=== PATIENT | male | born 1965 | race Hispanic/Latino ===

== ENCOUNTER 2017-10-02 07:35 | Emergency (ER) | payer MEDICAID ==
[2017-10-02 07:56] VITALS: BP 144/87; PULSE 84; RESP 16; TEMP 97.9; O2SAT 98
--- NOTE | 2017-10-02 08:26 | C.PDOC ---
History Of Present Illness 51-year-old male presents to the ED for evaluation of left toe injury sustained 2 days ago. Patient states that a radiator fell on his left great toe 2 days ago. He was seen at a [facility] yesterday and had an X-ray done, which was negative for fracture. However he states the toe contunues to be painful and the nail has become very dark in color. Patient denies new injuries or sensory changes. Time Seen by Provider: 10/02/17 07:46 Chief Complaint (Nursing): Lower Extremity Problem/Injury History Per: Patient History/Exam Limitations: no limitations Onset/Duration Of Symptoms: Days (x3) Current Symptoms Are (Timing): Still Present Past Medical History Reviewed: Historical Data, Nursing Documentation, Vital Signs Vital Signs: Last Vital Signs Temp 97.9 F 10/02/17 07:55 Pulse 84 10/02/17 07:55 Resp 16 10/02/17 07:55 BP 144/87 10/02/17 07:55 Pulse Ox 98 10/02/17 10:11 - Medical History PMH: Diabetes (borderline) Other Surgeries: Orthopedic surgery Family History: States: No Known Family Hx - Social History Hx Alcohol Use: Yes Hx Substance Use: Yes (09/2017 last use 1 month ago) - Immunization History Hx Tetanus Toxoid Vaccination: No Hx Influenza Vaccination: No Hx Pneumococcal Vaccination: No Review Of Systems Constitutional: Negative for: Fever, Chills Musculoskeletal: Positive for: Other (left great toe pain, + discoloration of nail) Skin: Negative for: Rash Neurological: Negative for: Weakness, Numbness Physical Exam - Physical Exam Appears: Well, Non-toxic, No Acute Distress Skin: Warm, Dry Eye(s): bilateral: Normal Inspection Oral Mucosa: Moist Neck: Supple Cardiovascular: Rhythm Regular Respiratory: Normal Breath Sounds, No Accessory Muscle Use, No Rales, No Rhonchi , No Wheezing Extremity: Normal ROM, Tenderness (left great toe), No Calf Tenderness, Capillary Refill (< 2 sec all digits ), No Deformity, Other (Left great toe with 100% subungual hematoma, + TTP, with mild surrounding erythema) Pulses: Left Dorsalis Pedis: Normal, Right Dorsalis Pedis: Normal Neurological/Psych: Oriented x3, Normal Sensation Gait: Steady ED Course And Treatment O2 Sat by Pulse Oximetry: 98 (RA) Pulse Ox Interpretation: Normal Progress Note: Electrocautery used to decompress the subungual hematoma/nail trephination (by me). Patient tolerated well, approx 5-10ml of blood expressed. Patient felt immediate relief of pain after procedure. He was instructed to follow up with PMD/clinic in 1-2 days, and understands he should return to ED if symptoms worsen. Disposition Counseled Patient/Family Regarding: Diagnosis, Need For Followup - Disposition Referrals: [facility] at [facility] [Outside] Disposition: HOME/ ROUTINE Disposition Time: 08:30 Condition: STABLE Additional Instructions: FOLLOW UP WITH YOUR DOCTOR/CLINIC IN 1-2 DAYS USE IBUPROFEN OR TYLENOL NEEDED FOR PAIN KEEP AREA CLEAN RETURN TO ER IF SYMPTOMS WORSEN Forms: General Discharge Instructions, [facility] (Luxembourgish), Work Excuse Print Language: PERUVIAN - POA Present On Arrival: Falls Or Trauma - Clinical Impression Clinical Impression: Subungual hematoma - Scribe Statement The provider has reviewed the documentation as recorded by the Scribe (Angélica Moran) Provider Attestation: All medical record entries made by the Scribe were at my direction and personally dictated by me. I have reviewed the chart and agree that the record accurately reflects my personal performance of the history, physical exam, medical decision making, and the department course for this patient. I have also personally directed, reviewed, and agree with the discharge instructions and disposition.
== END 2017-10-02 09:07 | disposition home or self-care (01) ==
LOC: C.ER 07:35
DX: S90.112D Contusion of left great toe without damage to nail, subsequent encounter (principal); W22.8XXD Striking against or struck by other objects, subsequent encounter; R73.03 Prediabetes

== ENCOUNTER 2017-10-22 10:01 | Emergency (ER) | payer MEDICAID, OTHER ==
[2017-10-22 10:23] VITALS: BP 129/82; PULSE 88; RESP 18; TEMP 98.4; O2SAT 97
[2017-10-22] MEDS ORDERED: Tmp-Smz 800 mg-160 mg DS Tab PO STA (10:36)
--- NOTE | 2017-10-22 10:38 | C.PDOC ---
History Of Present Illness 51 y/o male presents to ED for evaluation of redness and pain to left big toe gradually developed for 1 month. Patient was seen at ED "few days ago, my toe was broken 3 weeks ago and few days ago they drained my nail". Patient states, developed redness and pain developed left big toe nail bed after the procedure. Otherwise, pt denies recent knew trauma or injury, fever, chills, denies wound draining, weakness, sensory or vascular deficit to foot. Ambulate to Ed for evaluation, not in any apparent distress. Time Seen by Provider: 10/22/17 10:14 Chief Complaint (Nursing): Lower Extremity Problem/Injury History Per: Patient History/Exam Limitations: no limitations Onset/Duration Of Symptoms: Days Current Symptoms Are (Timing): Still Present Past Medical History Reviewed: Historical Data, Nursing Documentation, Vital Signs Vital Signs: Last Vital Signs Temp 98.4 F 10/22/17 10:11 Pulse 88 10/22/17 10:11 Resp 18 10/22/17 10:11 BP 129/82 10/22/17 10:11 Pulse Ox 97 10/22/17 10:47 - Medical History PMH: Diabetes (borderline) Surgical History: No Surg Hx Family History: States: No Known Family Hx - Social History Hx Alcohol Use: Yes Hx Substance Use: Yes (09/2017 last use 1 month ago) - Immunization History Hx Tetanus Toxoid Vaccination: No Hx Influenza Vaccination: No Hx Pneumococcal Vaccination: No Review Of Systems Constitutional: Negative for: Fever, Chills Musculoskeletal: Positive for: Foot Pain (toe). Negative for: Leg Pain Skin: Negative for: Rash, Bruising Neurological: Negative for: Numbness Physical Exam - Physical Exam Appears: Well, Non-toxic, No Acute Distress Skin: Normal Color, Warm, Dry, No Rash Extremity: Normal ROM, No Calf Tenderness, Capillary Refill (<2 seconds), No Deformity, No Swelling, Other (left toe nailbed diffuse erythema and tenderness. No fluctuance. No proximal streaking) Pulses: Left Dorsalis Pedis: Normal Neurological/Psych: Oriented x3, Normal Motor, Normal Sensation ED Course And Treatment O2 Sat by Pulse Oximetry: 97 (RA) Pulse Ox Interpretation: Normal Progress Note: On re-evaluation, pt is afebrile, hemodynamicaly stable. Ambulatory in Ed with stable gait. Left foot: exam c/w mild subungual ecchymoses with diffuse erythema around nail bed. No edema, no deformity, no proximal streaking, no open wound or discahrges. FAROM, no neurovascular deficist. Pt advised. ref. to f/u with Podiatry in 2 days for re-eval. return if any worseningor new changes. Disposition Counseled Patient/Family Regarding: Diagnosis, Need For Followup, Rx Given - Disposition Referrals: [facility] at [facility] [Outside] Disposition: HOME/ ROUTINE Disposition Time: 10:38 Condition: STABLE Additional Instructions: Take medictaion as prescribed light duty to Left foot, avoid prolong walking, standing for 1-2 weeks Follow up with Podiatry Clinic on Friday from noon 12 PM- 3PM for further evaluation and treatment. 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 - Scribe Statement The provider has reviewed the documentation as recorded by the Nick Ortez All medical record entries made by the Nick were at my direction and personally dictated by me. I have reviewed the chart and agree that the record accurately reflects my personal performance of the history, physical exam, medical decision making, and the department course for this patient. I have also personally directed, reviewed, and agree with the discharge instructions and disposition.
[2017-10-22] MEDS ORDERED: Tmp-Smz 800 mg-160 mg DS Tab ONE (10:46)
== END 2017-10-22 11:00 | disposition home or self-care (01) ==
LOC: C.ER 10:01
DX: S90.212A Contusion of left great toe with damage to nail, initial encounter (principal); X58.XXXA Exposure to other specified factors, initial encounter; L03.032 Cellulitis of left toe

== ENCOUNTER 2017-11-16 14:08 | Emergency (ER) | payer SELFPAY | END 2017-11-16 14:16 | disposition left against medical advice (07) | LOC: C.ER 14:08 | DX: Z02.89 Encounter for other administrative examinations (principal); F19.10 Other psychoactive substance abuse, uncomplicated ==

== ENCOUNTER 2017-11-17 00:34 | Inpatient (IN) | payer SELFPAY ==
[2017-11-17 01:55] LABS: BASO # 0.1 K/uL (0.0-0.2); BASO % 0.7 % (0.0-2.0); EOS # 0.2 K/uL (0.0-0.7); EOS % 2.1 % (0.0-4.0); HEMOGLOBIN 16.2 g/dL (12.0-18.0); LYMPH # 2.8 K/uL (1.0-4.3); LYMPH % 37.1 % (20.0-40.0); MEAN CELL VOLUME 87.4 fL (80.0-94.0); MEAN CORPUSCULAR HEMOGLOBIN 30.2 pg (27.0-31.0); MEAN CORPUSCULAR HGB CONC 34.6 g/dL (33.0-37.0); MEAN PLATELET VOLUME 7.6 fL (7.2-11.7); MONO # 0.6 K/uL (0.0-0.8); MONO % 8.1 % (0.0-10.0); NEUT # 3.9 K/uL (1.8-7.0); NRBC % 0.1 % (0.0-2.0); RBC 5.37 Mil/uL (4.40-5.90); RED CELL DISTRIBUTION WIDTH 13.5 % (11.5-14.5); WHITE BLOOD COUNT 7.5 K/uL (4.8-10.8)
--- NOTE | 2017-11-17 01:56 | C.PDOC ---
History Of Present Illness 51 year old male presents to the ED requesting detox for alcohol and crack cocaine. Patient states his last use was today [employer]. Patient denies other drug abuse, CP, SOB, hallucinations. Time Seen by Provider: 11/17/17 00:48 Chief Complaint (Nursing): Psychiatric Evaluation History Per: Patient History/Exam Limitations: intoxication Onset/Duration Of Symptoms: Hrs Current Symptoms Are (Timing): Still Present Suicide/Self Injury Attempted (Context): None Modifying Factor(s): Alcohol, Cocaine, Crack Associated Symptoms: denies: Depression, Suicidal Thoughts, Suicidal Plan Involuntary Hold By: None Recent travel outside of the [place]: No Additional History Per: Patient Past Medical History Reviewed: Historical Data, Nursing Documentation, Vital Signs Vital Signs: Last Vital Signs Temp 98.3 F 11/17/17 00:43 Pulse 116 H 11/17/17 00:43 Resp 20 11/17/17 00:43 BP 131/87 11/17/17 00:43 Pulse Ox 96 11/17/17 00:43 - Medical History PMH: Diabetes (borderline) Surgical History: No Surg Hx Family History: States: Unknown Family Hx - Social History Hx Alcohol Use: Yes Hx Substance Use: Yes - Immunization History Hx Tetanus Toxoid Vaccination: No Hx Influenza Vaccination: No Hx Pneumococcal Vaccination: No Review Of Systems Constitutional: Negative for: Fever, Chills Cardiovascular: Negative for: Chest Pain, Palpitations Respiratory: Negative for: Cough, Shortness of Breath Gastrointestinal: Negative for: Nausea, Vomiting, Abdominal Pain Skin: Negative for: Rash Psych: Negative for: Depression, Suicidal ideation Physical Exam - Physical Exam Appears: Non-toxic, No Acute Distress ED Course And Treatment O2 Sat by Pulse Oximetry: 96 Disposition - Disposition
[2017-11-17 01:58] LABS: SQUAMOUS EPITHIAL < 1 /hpf (0-5); URINE BILIRUBIN NEGATIVE (NEGATIVE); URINE BLOOD NEGATIVE (NEGATIVE); URINE CLARITY Hazy (Clear); URINE COLOR Yellow (YELLOW); URINE GLUCOSE (UA) 2+ mg/dL (Normal); URINE HYALINE CAST 0-2 /lpf (0-2); URINE LEUKOCYTE ESTERASE NEG Leu/uL (Negative); URINE PROTEIN 1+ mg/dL (NEGATIVE)
--- NOTE | 2017-11-17 01:59 | C.PDOC ---
History Of Present Illness 51 year old male presents to the ED requesting alcohol and crack cocaine abuse. Patient reports his last use was prior to arrival, patient reports having suicidal ideation and homicidal ideation with no specific plan. Patient denies CP, SOB, hallucinations, other substance abuse. Time Seen by Provider: 11/17/17 00:48 Chief Complaint (Nursing): Psychiatric Evaluation History Per: Patient History/Exam Limitations: intoxication Onset/Duration Of Symptoms: Hrs Current Symptoms Are (Timing): Still Present Suicide/Self Injury Attempted (Context): None Modifying Factor(s): Alcohol, Cocaine, Crack Associated Symptoms: Depression, Suicidal Thoughts. denies: Suicidal Plan Recent travel outside of the [place]: No Additional History Per: Patient Past Medical History Reviewed: Historical Data, Nursing Documentation, Vital Signs Vital Signs: Last Vital Signs Temp 98.3 F 11/17/17 06:00 Pulse 96 H 11/17/17 06:00 Resp 20 11/17/17 06:00 BP 125/76 11/17/17 06:00 Pulse Ox 95 11/17/17 06:00 - Medical History PMH: Diabetes (borderline) Surgical History: No Surg Hx Family History: States: Unknown Family Hx - Social History Hx Alcohol Use: Yes Hx Substance Use: Yes - Immunization History Hx Tetanus Toxoid Vaccination: No Hx Influenza Vaccination: No Hx Pneumococcal Vaccination: No Review Of Systems Constitutional: Negative for: Fever, Chills Cardiovascular: Negative for: Chest Pain Respiratory: Negative for: Cough, Shortness of Breath Gastrointestinal: Negative for: Nausea, Vomiting, Abdominal Pain Skin: Negative for: Rash Psych: Positive for: Depression, Suicidal ideation Physical Exam - Physical Exam Appears: Non-toxic, No Acute Distress Skin: Normal Color, Warm, Dry Head: Atraumatic, Normacephalic Eye(s): bilateral: Normal Inspection Neck: Normal ROM, Supple Chest: Symmetrical Cardiovascular: Rhythm Regular Respiratory: Normal Breath Sounds, No Rales, No Rhonchi, No Wheezing Gastrointestinal/Abdominal: Soft, No Tenderness, No Guarding, No Rebound Extremity: Normal ROM, No Tenderness, No Swelling Neurological/Psych: Oriented x3, Normal Speech, Normal Cognition Gait: Steady ED Course And Treatment - Laboratory Results Result Diagrams: 11/17/17 01:50 11/17/17 01:50 O2 Sat by Pulse Oximetry: 96 (ON RA) Pulse Ox Interpretation: Normal Medical Decision Making Medical Decision Making: Plan: * Labs * UA * Crisis evaluation Disposition - Disposition Disposition: HOSPITALIZED Disposition Time: 02:00 Condition: STABLE - POA Present On Arrival: None - Clinical Impression Clinical Impression: Depressive disorder, Drug abuse and dependence - PA / RIVER GUIDE / Resident Statement MD/DO has reviewed & agrees with the documentation as recorded. - Scribe Statement The provider has reviewed the documentation as recorded by the Scribe Cruz Barrientos All medical record entries made by the Scribe were at my direction and personally dictated by me. I have reviewed the chart and agree that the record accurately reflects my personal performance of the history, physical exam, medical decision making, and the department course for this patient. I have also personally directed, reviewed, and agree with the discharge instructions and disposition.
[2017-11-17 02:05] LABS: ALB/GLOB RATIO 1.4 (1.0-2.1); ALBUMIN 5.1 g/dL (3.5-5.0); ALT/SGPT 60 U/L (21-72); AST/SGOT 44 U/L (17-59); BLOOD UREA NITROGEN 18 mg/dL (9-20); CALCIUM 9.3 mg/dl (8.6-10.4); GFR AFRICAN-AMERICAN > 60; GFR NON-AFRICAN AMERICAN > 60
[2017-11-17 02:09] LABS: BARBITURATES, UR NEGATIVE (NEGATIVE); BENZODIAZEPINES, UR NEGATIVE (NEGATIVE); OPIATES, UR NEGATIVE (NEGATIVE); PHENCYCLIDINE, UR NEGATIVE (NEGATIVE)
--- NOTE | 2017-11-17 03:32 | PCM.BM ---
<Queenie Flor - Last Filed: 11/17/17 03:31> Treatment Plan Problems - Problems identified on initial assessmt Suicidal ideations Date Initiated: 11/17/17 Time Initiated: 03:25 Assessment reference: NA Status: Active Treatment assets and liabiliti Patient Assests: cooperative, ADL independent, negotiates basic needs Patient Liabilities: live alone, substance abuse - Milieu Protocol Maintain good personal hygiene: daily Encourage regular showers, daily Remind patient to perform daily oral care, daily Assist patient to perform ADL's Maintain personal safety: every shift Educate patient to report safety concerns to staff, every shift Monitor environment for contraband/sharps Medication safety: Monitor for expected outcome, potential side effects: every shift, Assess barriers to learning: every shift, Assess readiness for medication education: every shift <Jessica Mckeon - Last Filed: 11/17/17 16:47> Family Contact Family involvement: Patient does not wish Family/SO involvement Family contact: Patient declines to allow family contact at present - Goals for Treatment Patient goals for treatment: "I want to go back to [facility], ." Discharge/Continuing Care - Education Needs Education Needs: Patient Medication, Patient Diagnosis/Disease Process, Patient Coping Skills, Patient Placement options, Patient Community resources - Discharge Discharge Criteria: Free of Suicidal thoughts, Normal sleep pattern, Ability to care for self, No longer exhibiting s/s of withdrawal, Reduction of target symptoms Discharge to:: Substance Abuse Rehab - Treatment Team Participation Discussed with Family/SO: No Was Patient/Family/SO present at Treatment Team Meeting: Yes <Iva Carroll - Last Filed: 11/17/17 23:59> - Diagnosis (1) Alcohol use disorder, severe, dependence Status: Acute Interventions: 11/17/17 23:59 * Assess 7x/week regarding severity of withdrawal * Educate regarding risks, benefits, side effects and alternatives of medications * Use Motivational Interviewing for abstinence * Use CBT for relapse prevention * Medication management for withdrawal symptoms * Encourage medication assisted treatment * (2) Depressive disorder Status: Acute Interventions: 11/17/17 23:59 * Assess/adjust medications daily and /or as needed * See patient on an individual basis 7x/week to assess symptoms of depression * Monitor for side effects & effectiveness of medications *
[2017-11-17 04:07] VITALS: RESP 20
--- NOTE | 2017-11-17 11:39 | PCM.PSYCH ---
Initial Psychiatric Evaluation - Initial Psychiatric Evaluation Type of Admission: Voluntary Legal Status: Capacity Chief Complaint (in patient's own words): "I drank all day yesterday and I felt depressed with suicidal thoughts" History of Present Illness and Precipitating Events: HPI: Patient is a 51 year old male, currently , has 1 daughter, aged 15 with history of severe depression and alcohol abuse who was admitted yesterday for complaints of depression and suicidal thoughts. He states he has been at [facility] in [place] for 2 months until he walked out yesterday and drank all day yesterday. He states he drank 1 pint of vodka and 8-10 cans of beer, and subsequently felt depressed and had suicidal thoughts. He states he had no specific suicidal plan in place. He admits to a prior suicidal attempt, when he punched his hand through a window. He admits to feeling anxious or depressed about the future, however currently denies any suicidal or homicidal thoughts. He denies auditory or visual hallucinations. He denies feeling paranoid. He denies history of seizures in the past. He states he has been to [facility] meetings in the past, however stopped going. He would like to return to [facility] in [place]. Patient currently refusing all medications, stating that he has the right to refuse them. Past psychiatric hospitalizations: Admitted for depression 5 times. Has been to detox and rehab >10 times. No history of Naltrexone use. PMH: Hepatitis C, arthritis, DM - untreated PSH: right knee arthroscopic, right shoulder reconstructive surgery Home Meds: none Social hx: (+) Smokes 1ppd for 33 years. (+) long history of alcohol abuse, unable to quantify, binge drinks. (+) Admits to using crack cocaine, intermittently when he binge drinks. (+) marijuana use intermittently, once every 5 years. Longest period of sobriety - 4 years. male, , has 1 daughter, aged 15 Family hx: Father dealt with depression and alcohol abuse, currently . Allergies: Benadryl, reaction: hyperventilates Current Medications: Active Medications Generic Name Dose Route Start Last Admin Trade Name Freq PRN Reason Stop Dose Admin Haloperidol 5 mg 11/17/17 11:30 Haldol PO Q4H PRN Agitation Ibuprofen 600 mg 11/17/17 11:30 Motrin Tab PO Q6H PRN Pain, moderate (4-7) Pneumococcal Polyvalent Vaccine 0.5 ml 11/20/17 10:00 Pneumovax 23 Vaccine IM 11/20/17 10:01 .ONCE ONE Trazodone HCl 100 mg 11/17/17 22:00 Desyrel PO HS PRN Insomnia Past Psychiatric History - Past Psychiatric History Previous Treatment History: Inpatient Pertinent Medical Hx (Current Medical&Sleep Prob, Allergies): Allergies Allergy/AdvReac Type Severity Reaction Status Date / Time diphenhydramine Allergy Verified 11/17/17 00:49 [From Benadryl] No Known Home Med 11/17/17 Review of Systems - Psychiatric Psychiatric: Anxiety, Depression, Suicidal Ideation. absent: Auditory Hallucinations, Hallucinations, Homicidal Ideation, Paranoia, Visual Hallucinations, Tactile Hallucinations Mental Status Examination - Personal Presentation Personal Presentation: Looks older than stated age - Affect Affect: Constricted (constricted, however intermittently becomes agitated during conversation) - Motor Activity Motor Activity: Calm - Reliability in Providing Information Reliability in Providing Information: Fair - Speech Speech: Organized, Relevant, Coherent - Mood Mood: Depressed, Anxious - Formal Thought Process Formal Thought Process: No Impairment - Hallucinations/Delusions Additional comments: No hallucinations no delusions - Obsessions/Compulsions Obsessions: No Compulsions: No - Cognitive Functions Orientation: Person, Place, Situation, Time Sensorium: Alert Attention/Concentration: Attentive Judgement: Imparied, as evidence by: Poor judgement Memory: Recent intact, as evidence by: Ability to recall events of the day, Remote intact, as evidenced by: Ability to recall historical events - Risk Risk: Suicidal, Withdrawal, Diminished functioning DSM 5 DX - DSM 5 DSM 5 Diagnosis: Depressive disorder, unspecified Alcohol use disorder, severe Cannabis use disorder Cocaine use disorder Tobacco use disorder Personality disorder, unspecified - Recommended/Plan of Treatment Treatment Recommendations and Plan of Treatment: Haldol 5mg PO Q4 PRN agitation Trazadone 100mg PO HS PRN insomnia Risks and benefits of medications explained to patient, however patient still refusing medications Attend groups and activities Support and psychoeducation After care planning by social work instructor 34 mins Case discussed with Dr. Glen Blanchard, PGY1
[2017-11-18 06:57] VITALS: BP 140/83; PULSE 78; TEMP 97.7; O2SAT 97
--- NOTE | 2017-11-18 11:21 | PCM.PYCHDC ---
Mental Status Examination - Mental Status Examination Orientation: Person, Place, Situation, Time Memory: Intact Mood: Anxious Affect: Constricted Speech: Appropriate Attention: WNL Concentration: Poor Association: WNL Fund of Knowledge: WNL Formal Thought Process: No Impairment Suicidal Ideation: No Current Homicidal Ideation?: No Discharge Summary - Discharge Note Reason for Hospitalization: Depression, SI Laboratory Data: Abnormal Lab Results 11/17/17 09:10 POC Glucose (mg/dL) 154 H Consultations:: List each consultation separately and include: 1. Reason for request. 2. Findings. 3. Follow-up Summary of Hospital Course include:: 1. Description of specific treatment plan utilized for patients during their course of treatmen. 2. Summarize the time- course for resolution of acute symptoms and/or regressed behaviors. 3. Describe issues identified and worked on during hospitalization. 4. Describe medication utilized. 5. Describe medical problems identified and treated. 6. Reassessment of suicide risk Summary of Hospital Course: The pt was admitted and started on treatment with psychotherapy, support and psychoeducation. IN used. The pt attended few groups and activities, as well as milieu therapy. All the risks and benefits of medications are discussed and the patient understood and agreed. After care discussed with the patient but he left early, refused to take any meds and he said he would walk to [facility] and they will accept him b/c they "like" him. Risks of such a vague plan discussed, he understood but left. He was very rigid (refusing all meds) and he almost came here jut to show [facility] that he came here. he was no longer suicidal . - Final Diagnosis (DSM 5) Condition upon Discharge: STABLE DSM 5: Depressive disorder, unspecified Alcohol use disorder, severe Cannabis use disorder Cocaine use disorder Tobacco use disorder Personality disorder, unspecified Disposition: HOME/ ROUTINE Follow-up Treatment Plan: Follow after care plan as discussed. Use relapse prevention skills Return to ER or call 911 if suicidal, homicidal or symptoms relapse. Stay away from stress, alcohol and drugs. See primary doctor regularly and get labs.
[2017-11-20] MEDS ORDERED: Pneumococcal 23-Valent Vaccine IM ONE (10:00)
== END 2017-11-18 11:53 | disposition home or self-care (01) | DRG 881 ==
LOC: C.ER 00:34 → C.5E 02:35
PROVIDERS: ADMIT Psychiatry & Neurology Psychiatry; ATTEND Psychiatry & Neurology Psychiatry
PROC: GZ3ZZZZ Medication Management (ICD-10-PCS; principal; 2017-11-17)
PROC: GZHZZZZ Group Psychotherapy (ICD-10-PCS; 2017-11-17)
PROC: GZ56ZZZ Individual Psychotherapy, Supportive (ICD-10-PCS; 2017-11-17)
PROC: HZ46ZZZ Group Counseling for Substance Abuse Treatment, Psychoeducation (ICD-10-PCS; 2017-11-17)
DX: F32.9 Major depressive disorder, single episode, unspecified (principal); R45.851 Suicidal ideations; F10.20 Alcohol dependence, uncomplicated; F14.10 Cocaine abuse, uncomplicated; F12.90 Cannabis use, unspecified, uncomplicated; R45.850 Homicidal ideations; F60.9 Personality disorder, unspecified; F17.210 Nicotine dependence, cigarettes, uncomplicated; E11.9 Type 2 diabetes mellitus without complications; M19.90 Unspecified osteoarthritis, unspecified site; B18.2 Chronic viral hepatitis C; Z53.29 Procedure and treatment not carried out because of patient's decision for other reasons